=== PATIENT | female | born 1960 | race African-American/Black ===

== ENCOUNTER 2021-11-07 08:11 | Outpatient (CLI) | payer MEDICARE | END 2021-11-07 08:12 | disposition home or self-care (01) | LOC: CSHWCC 08:11 | PROVIDERS: ATTEND Nurse Practitioner Family | DX: T81.89XD Other complications of procedures, not elsewhere classified, subsequent encounter (principal) | CPT/HCPCS: 97139; G0463; 99213 ==

== ENCOUNTER 2021-11-21 10:04 | Outpatient (CLI) | payer MEDICARE | END 2021-11-21 10:05 | disposition home or self-care (01) | LOC: CSHWCC 10:04 | PROVIDERS: ATTEND Nurse Practitioner Family | DX: T81.89XD Other complications of procedures, not elsewhere classified, subsequent encounter (principal); L59.8 Other specified disorders of the skin and subcutaneous tissue related to radiation | CPT/HCPCS: 97139; G0463; 99212 ==

== ENCOUNTER 2021-12-05 13:12 | Outpatient (CLI) | payer MEDICARE | END 2021-12-05 13:13 | disposition home or self-care (01) | LOC: CSHWCC 13:12 | PROVIDERS: ATTEND Preventive Medicine Undersea and Hyperbaric Medicine | DX: T81.89XD Other complications of procedures, not elsewhere classified, subsequent encounter (principal) | CPT/HCPCS: 97139; G0463; 99212 ==

== ENCOUNTER 2021-12-22 11:55 | Inpatient (IN) | payer MEDICARE ==
[~2021-12-22 11:55] MED LIST: Iopamidol 300 61% 100 ML VIAL FS ONE
[2021-12-22] MEDS ORDERED: Morphine 4 MG/ML VIAL ONE (14:25)
[2021-12-22] MEDS ORDERED: Ketorolac Tromethamine 30 MG/ML VIAL ONE (14:25)
[2021-12-22] MEDS ORDERED: Piperacillin/Tazobactam 3.375 GM VIAL ONE (14:26)
[2021-12-22 14:34] LABS: #Eosinphils 0.1 10x3/uL (0.0-0.5); #Monocytes 0.4 10x3/uL (0.0-1.1); #Neutrophils 3.5 10x3/uL (1.5-8.4); %Basophils 0.6 % (0.0-2.0); %Eosinophils 1.2 % (0.0-6.0); %Lymphocytes 19.6 % (18.0-47.0); %Monocytes 8.5 % (0.0-10.0); %Neutrophils 69.9 % (40.0-75.0); ALT (SGPT) 36 U/L (8-55); AST (SGOT) 37 U/L (5-34); Albumin 3.7 g/dL (3.4-4.8); Alkaline Phosphatase 98 U/L (40-110); Anion Gap 12 mmol/L (10-20); BUN (Urea Nitrogen) 14 mg/dL (9.8-20.1); Bilirubin, Total 0.5 mg/dL (0.2-1.2); Calc. Creatinine Clearance 0 mL/min (70-130); Calcium 10.8 mg/dL (7.8-10.44); Carbon Dioxide 23 mmol/L (23-31); Chloride 108 mmol/L (98-107); Estimated GFR 51; Globulin 3.7 g/dL (2.4-3.5); Glucose 98 mg/dL (80-115); Hemoglobin 12.5 g/dL (12.0-15.5); Mean Corpuscular HGB CONC 30.2 g/dL (32.0-36.0); Mean Corpuscular Hemoglobin 24.8 pg (27.0-33.0); Mean Corpuscular Volume 82.1 fl (81.6-98.3); Mean Platelet Volume 9.7 fl (7.4-10.4); Platelet Count 189 10x3/uL (150-450); Potassium 4.4 mmol/L (3.5-5.1); Protein, Total 7.4 g/dL (5.8-8.1); RBC Distribution Width 14.5 % (11.5-14.5); Red Blood Cell (RBC) Count 5.04 10x6/uL (3.90-5.03); Sodium 139 mmol/L (136-145); White Blood Cell (WBC) Count 4.9 10x3/uL (3.5-10.5)
[2021-12-22] MEDS ORDERED: Ondansetron PF 4 MG/2 ML Vial ONE (17:53)
[2021-12-22] MEDS ORDERED: Acetaminophen 325 MG TAB PO PRN (18:58)
[2021-12-22] MEDS ORDERED: hydrALAZINE 20 MG/ML VIAL SLOW IVP PRN (19:01)
[2021-12-22] MEDS ORDERED: Melatonin 3 MG TAB PO PRN (19:03)
[2021-12-22] MEDS ORDERED: Electrolyte Replacement Protocol 1 EACH FS SCH (19:15)
[2021-12-22] MEDS ORDERED: Temazepam 15 MG CAP PO PRN (19:45)
[2021-12-22] MEDS ORDERED: Carvedilol 6.25 MG TAB PO SCH (20:30)
[2021-12-22] MEDS: Piperacillin/Tazobactam 3.375 GM in Sodium Chloride 0.9% 100 ML IVPB SCH (21:31)
[2021-12-22] MEDS: Apixaban 5 MG TAB PO SCH (21:32)
[2021-12-22] MEDS: Morphine 4 MG/ML VIAL SLOW IVP PRN (22:38)
[2021-12-22 22:59] VITALS: BMI 36.6
[2021-12-22] MEDS ORDERED: Vancomycin HCl 500 MG in Sodium Chloride 0.9% 100 ML IVPB SCH (23:45)
[2021-12-23] MEDS ORDERED: Sodium Chloride 0.9% 100 ML ONE (00:10)
[2021-12-23] MEDS: Ondansetron PF 4 MG/2 ML Vial IVP PRN (00:19)
[2021-12-23] MEDS: Piperacillin/Tazobactam 3.375 GM in Sodium Chloride 0.9% 100 ML IVPB SCH ×3 (02:48→20:15)
[2021-12-23 04:30] LABS: #Eosinphils 0.1 10x3/uL (0.0-0.5); #Monocytes 0.4 10x3/uL (0.0-1.1); #Neutrophils 2.2 10x3/uL (1.5-8.4); %Basophils 1.1 % (0.0-2.0); %Eosinophils 3.9 % (0.0-6.0); %Lymphocytes 23.7 % (18.0-47.0); Hemoglobin 10.9 g/dL (12.0-15.5); Mean Corpuscular Hemoglobin 25.4 pg (27.0-33.0); Mean Corpuscular Volume 82.1 fl (81.6-98.3); Mean Platelet Volume 9.6 fl (7.4-10.4); Platelet Count 145 10x3/uL (150-450); RBC Distribution Width 14.4 % (11.5-14.5); Red Blood Cell (RBC) Count 4.29 10x6/uL (3.90-5.03); White Blood Cell (WBC) Count 3.6 10x3/uL (3.5-10.5)
[2021-12-23 04:57] LABS: Anion Gap 10 mmol/L (10-20); BUN (Urea Nitrogen) 17 mg/dL (9.8-20.1); Calc. Creatinine Clearance 80 mL/min (70-130); Calcium 9.8 mg/dL (7.8-10.44); Carbon Dioxide 21 mmol/L (23-31); Chloride 110 mmol/L (98-107); Estimated GFR 55; Glucose 166 mg/dL (80-115); Potassium 4.2 mmol/L (3.5-5.1); Sodium 137 mmol/L (136-145)
[2021-12-23] MEDS ORDERED: ALPRAZolam 0.5 MG TAB PO PRN (07:20)
[2021-12-23] MEDS ORDERED: Dextrose 5% in Water 1,000 ML IV PRN (07:21)
[2021-12-23] MEDS ORDERED: HumaLOG 300 UNITS/3 ML VIAL SC PRN (07:21)
[2021-12-23] MEDS ORDERED: Dextrose 50% Abboject 50 ML SYRINGE SLOW IVP PRN (07:21)
[2021-12-23] MEDS ORDERED: Non-Formulary Medication 1 EACH (Evolocumab [Repatha Sureclick] 140 MG/ML Pen.Injctr) SQ SCH (07:30)
[2021-12-23] MEDS: Multivitamin W/ Minerals 1 TAB PO SCH (08:59)
[2021-12-23] MEDS: Aspirin 81 mg Enteric Coated Tablet PO SCH (09:00)
[2021-12-23] MEDS: Carvedilol 6.25 MG TAB PO SCH ×2 (09:00→18:41)
[2021-12-23] MEDS ORDERED: Lantus 1000 UNITS/10 ML VIAL SC SCH (09:00)
[2021-12-23] MEDS: Furosemide 40 MG TAB PO SCH (09:00)
[2021-12-23] MEDS: Apixaban 5 MG TAB PO SCH ×2 (09:00→20:25)
[2021-12-23] MEDS ORDERED: LIRAGLUTIDE 0.6 MG/0.1 ML SC SCH (09:00)
[2021-12-23] MEDS: Morphine 4 MG/ML VIAL SLOW IVP PRN ×3 (10:51→18:43)
[2021-12-23] MEDS ORDERED: Acetaminophen 325 MG TAB PO PRN (13:25)
[2021-12-23] MEDS ORDERED: Naloxone HCl 0.4 mg/ml Vial IV PRN (13:37)
[2021-12-23] MEDS ORDERED: Lidocaine 2% w/ Epi 1:200K 10 ML VIAL FS SCH (13:45)
[2021-12-23] MEDS ORDERED: Silver Nitrate Application 1 EACH ONE (14:18)
[2021-12-23] MEDS: Acetaminophen 325 MG TAB PO SCH ×2 (15:30→20:26)
[2021-12-23] MEDS ORDERED: Vancomycin 1.5 GRAM/300 ML BAG 1.5 GM in Premix Bag 1 BAG IVPB SCH (16:00)
[2021-12-23] MEDS: HumaLOG 300 UNITS/3 ML VIAL SC PRN (16:06)
[2021-12-23] MEDS: Rosuvastatin 20 MG TAB PO SCH (20:25)
[2021-12-23] MEDS: Lantus 1000 UNITS/10 ML VIAL SC SCH (20:42)
[2021-12-23] MEDS: Ondansetron ODT 4 MG TAB PO PRN (20:43)
[2021-12-24] MEDS: Zolpidem Tartrate 5 MG TAB PO PRN ×2 (02:50→22:01)
[2021-12-24] MEDS: Acetaminophen 325 MG TAB PO SCH ×4 (02:53→21:41)
[2021-12-24 05:45] LABS: #Eosinphils 0.3 10x3/uL (0.0-0.5); #Monocytes 0.4 10x3/uL (0.0-1.1); #Neutrophils 1.7 10x3/uL (1.5-8.4); %Basophils 0.9 % (0.0-2.0); %Eosinophils 7.5 % (0.0-6.0); %Lymphocytes 30.4 % (18.0-47.0); %Monocytes 11.6 % (0.0-10.0); %Neutrophils 49.3 % (40.0-75.0); Hemoglobin 11.3 g/dL (12.0-15.5); Mean Corpuscular HGB CONC 30.2 g/dL (32.0-36.0); Mean Corpuscular Hemoglobin 24.6 pg (27.0-33.0); Mean Corpuscular Volume 81.3 fl (81.6-98.3); Mean Platelet Volume 9.4 fl (7.4-10.4); Platelet Count 157 10x3/uL (150-450); RBC Distribution Width 14.4 % (11.5-14.5); White Blood Cell (WBC) Count 3.4 10x3/uL (3.5-10.5)
[2021-12-24 05:54] LABS: Anion Gap 12 mmol/L (10-20); BUN (Urea Nitrogen) 18 mg/dL (9.8-20.1); Calc. Creatinine Clearance 71 mL/min (70-130); Carbon Dioxide 22 mmol/L (23-31); Chloride 111 mmol/L (98-107); Estimated GFR 47; Glucose 124 mg/dL (80-115); Potassium 4.1 mmol/L (3.5-5.1); Sodium 141 mmol/L (136-145)
[2021-12-24] MEDS: Piperacillin/Tazobactam 3.375 GM in Sodium Chloride 0.9% 100 ML IVPB SCH (08:08)
[2021-12-24] MEDS: Carvedilol 6.25 MG TAB PO SCH ×2 (09:25→16:27)
[2021-12-24] MEDS: Aspirin 81 mg Enteric Coated Tablet PO SCH (09:26)
[2021-12-24] MEDS: Multivitamin W/ Minerals 1 TAB PO SCH (09:26)
[2021-12-24] MEDS: Furosemide 40 MG TAB PO SCH (09:26)
[2021-12-24] MEDS: Apixaban 5 MG TAB PO SCH ×2 (09:27→21:41)
[2021-12-24] MEDS: Lantus 1000 UNITS/10 ML VIAL SC SCH ×2 (09:29→21:42)
[2021-12-24] MEDS: Morphine 4 MG/ML VIAL SLOW IVP PRN ×2 (09:38→21:43)
[2021-12-24] MEDS: HumaLOG 300 UNITS/3 ML VIAL SC PRN (13:39)
[2021-12-24] MEDS: Clindamycin/D5W 600 MG in Premix Bag 1 BAG IVPB SCH ×2 (14:54→21:42)
[2021-12-24 15:31] LABS: Vancomycin, Trough 14.6 ug/mL
[2021-12-24] MEDS: Ondansetron ODT 4 MG TAB PO PRN (18:07)
[2021-12-24] MEDS: Ketorolac Tromethamine 30 MG/ML VIAL IVP SCH ×2 (18:07)
[2021-12-24] MEDS: Rosuvastatin 20 MG TAB PO SCH (21:40)
[2021-12-25] MEDS: HYDROcodone/Acetaminophen 5/325 mg Tablet PO PRN ×3 (00:20→21:24)
[2021-12-25] MEDS: Ondansetron PF 4 MG/2 ML Vial IVP PRN ×2 (01:36→21:36)
[2021-12-25] MEDS: Morphine 4 MG/ML VIAL SLOW IVP PRN (03:11)
[2021-12-25] MEDS: Acetaminophen 325 MG TAB PO SCH ×4 (03:15→21:24)
[2021-12-25] MEDS: Clindamycin/D5W 600 MG in Premix Bag 1 BAG IVPB SCH ×3 (06:25→21:25)
[2021-12-25] MEDS: Ketorolac Tromethamine 30 MG/ML VIAL IVP SCH ×4 (06:25→23:17)
[2021-12-25] MEDS: Furosemide 40 MG TAB PO SCH (08:39)
[2021-12-25] MEDS: LACTINEX 1 TAB PO SCH (08:39)
[2021-12-25] MEDS: Multivitamin W/ Minerals 1 TAB PO SCH (08:39)
[2021-12-25] MEDS: Carvedilol 6.25 MG TAB PO SCH ×2 (08:39→16:02)
[2021-12-25] MEDS: Apixaban 5 MG TAB PO SCH ×2 (08:39→21:23)
[2021-12-25] MEDS: Lantus 1000 UNITS/10 ML VIAL SC SCH ×2 (08:40→21:22)
[2021-12-25] MEDS: Pantoprazole 40 MG VIAL IVP SCH (08:41)
[2021-12-25] MEDS: Piperacillin/Tazobactam 3.375 GM in Sodium Chloride 0.9% 100 ML IVPB SCH (10:50)
[2021-12-25] MEDS ORDERED: Gabapentin 300 MG CAP PO PRN (13:32)
[2021-12-25] MEDS ORDERED: Amlodipine 5 MG TAB PO SCH (13:45)
[2021-12-25] MEDS: HumaLOG 300 UNITS/3 ML VIAL SC PRN (15:58)
[2021-12-25] MEDS: Rosuvastatin 20 MG TAB PO SCH (21:22)
[2021-12-25] MEDS: Zolpidem Tartrate 5 MG TAB PO PRN (23:26)
[2021-12-26] MEDS: Acetaminophen 325 MG TAB PO SCH ×3 (02:26→13:59)
[2021-12-26] MEDS: Ketorolac Tromethamine 30 MG/ML VIAL IVP SCH ×2 (05:46→11:39)
[2021-12-26] MEDS: Clindamycin/D5W 600 MG in Premix Bag 1 BAG IVPB SCH ×2 (05:46→14:00)
[2021-12-26] MEDS ORDERED: Amlodipine 5 MG TAB PO SCH (09:00)
[2021-12-26] MEDS ORDERED: Lantus 1000 UNITS/10 ML VIAL SC SCH (09:00)
[2021-12-26] MEDS: Pantoprazole 40 MG VIAL IVP SCH (09:00)
[2021-12-26] MEDS: LACTINEX 1 TAB PO SCH (09:01)
[2021-12-26] MEDS: Furosemide 40 MG TAB PO SCH (09:01)
[2021-12-26] MEDS: Multivitamin W/ Minerals 1 TAB PO SCH (09:02)
[2021-12-26] MEDS: HYDROcodone/Acetaminophen 5/325 mg Tablet PO PRN ×2 (09:02→13:59)
[2021-12-26] MEDS: Apixaban 5 MG TAB PO SCH (09:02)
[2021-12-26] MEDS: Carvedilol 6.25 MG TAB PO SCH ×2 (09:09→18:30)
[2021-12-26] MEDS: HumaLOG 300 UNITS/3 ML VIAL SC PRN (11:41)
[2021-12-26 11:52] VITALS: TEMP 97.6
[2021-12-26] MEDS: Ondansetron ODT 4 MG TAB PO PRN (13:59)
[2021-12-26] MEDS ORDERED: ALPRAZolam 0.5 MG TAB PO PRN (14:19)
[2021-12-26 18:31] VITALS: BP 124/59
[2021-12-30] MEDS ORDERED: Aspirin 81 mg Enteric Coated Tablet PO SCH (09:00)
== END 2021-12-26 17:00 | disposition home or self-care (01) | DRG 600 ==
LOC: CSHERS 11:55 → CSHTELE 18:18 → OBSVTOIN 18:19
PROVIDERS: ADMIT Family Medicine; ATTEND Family Medicine
PROC: 5A09357 Assistance with Respiratory Ventilation, Less than 24 Consecutive Hours, Continuous Positive Airway Pressure (ICD-10-PCS; principal; 2021-12-24)
DX: N61.0 Mastitis without abscess (principal); L03.313 Cellulitis of chest wall; I12.9 Hypertensive chronic kidney disease with stage 1 through stage 4 chronic kidney disease, or unspecified chronic kidney disease; E11.22 Type 2 diabetes mellitus with diabetic chronic kidney disease; N18.30 Chronic kidney disease, stage 3 unspecified; I48.91 Unspecified atrial fibrillation; D63.1 Anemia in chronic kidney disease; F41.9 Anxiety disorder, unspecified; F32.A Depression, unspecified; E11.51 Type 2 diabetes mellitus with diabetic peripheral angiopathy without gangrene; I25.10 Atherosclerotic heart disease of native coronary artery without angina pectoris; Z20.822 Contact with and (suspected) exposure to COVID-19; E66.9 Obesity, unspecified; Z95.1 Presence of aortocoronary bypass graft; Z98.890 Other specified postprocedural states; Z88.8 Allergy status to other drugs, medicaments and biological substances; Z79.82 Long term (current) use of aspirin; Z79.899 Other long term (current) drug therapy; Z79.01 Long term (current) use of anticoagulants; Z79.4 Long term (current) use of insulin; I25.2 Old myocardial infarction; Z68.36 Body mass index [BMI] 36.0-36.9, adult; T81.89XD Other complications of procedures, not elsewhere classified, subsequent encounter
CPT/HCPCS: 36415; 36416; 71260; 80048; 80053; 80202; 83605; 85025; 87040; 87070; 87077; 87186; 87205; 93005; 93010; 94660; 94760; 96374; 96375; 97139; 99212; C9113; G0463; J0360; J1815; J1885; J2270; J2405; J2543; J3370; J3490; Q0162; Q9967; U0003; U0005

== ENCOUNTER 2022-01-15 12:57 | Outpatient (CLI) | payer MEDICARE | END 2022-01-15 12:58 | disposition home or self-care (01) | LOC: CSHWCC 12:57 | PROVIDERS: ATTEND Preventive Medicine Undersea and Hyperbaric Medicine | DX: T81.89XD Other complications of procedures, not elsewhere classified, subsequent encounter (principal) | CPT/HCPCS: 99212; G0463 ==